=== PATIENT | male | born 1945 | race Caucasian/White ===

== ENCOUNTER 2016-07-11 11:25 | Inpatient (IN) | payer BC, MEDICARE ==
[~2016-07-11] VITALS: Ht 170.2 cm; Wt 72.6 kg
[2016-07-11] MEDS ORDERED: IV NORMAL SALINE 1000ML BAG 1,000 ML IV SCH (12:42)
[2016-07-11] MEDS ORDERED: ONDANSETRON PF 4 MG/2 ML VIAL. IV ONE (12:45)
[2016-07-11] MEDS ORDERED: FENTANYL PF 100 MCG/2 ML VIAL. IV PRN ×2 (12:45→14:30)
[2016-07-11 13:02] LABS: BASO % 1 % (0-3); EOS % 4 % (0-3); HEMATOCRIT 42.3 % (39.0-53.0); HEMOGLOBIN 14.1 g/dL (13.0-17.5); LYMPH # 1.1 x10^3/uL (1.0-4.8); LYMPH % 14 % (24-48); MEAN CORPUSCULAR HEMOGLOBIN 30 pg (25-35); MEAN CORPUSCULAR HGB CONC 33 g/dL (31-37); MEAN CORPUSCULAR VOLUME 90 fL (79-100); MONO % 10 % (0-9); NEUT % 72 % (31-73); PLATELET COUNT 172 x10^3/uL (140-400); RED CELL DISTRIBUTION WIDTH 12.2 % (11.5-14.5)
--- NOTE | 2016-07-11 13:11 | PHYS DOC ---
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 He states he has had approximately 14 ounces of liquids in the past 2-3 days. He can no longer swallow solids. He had endoscopy within the past week. Dr. Ellis , gastroenterology, called this provider to notify you need of admission and oncology consultation with Dr. Buenrostro. Patient denies chest pain, dyspnea, cough , current nausea, diarrhea, constipation, dysuria. He has slight lightheadedness and fatigue. He has not been able to eat solids in weeks. Review of Systems Review of Systems Constitutional: Denies fever or chills [] Eyes: Denies change in visual acuity, redness, or eye pain [] HENT: Denies nasal congestion or sore throat [] Respiratory: Denies cough or shortness of breath [] Cardiovascular: No additional information not addressed in HPI [] GI: Denies abdominal pain, nausea, vomiting, bloody stools or diarrhea [] : Denies dysuria or hematuria [] Musculoskeletal: Denies back pain or joint pain [] Integument: Denies rash or skin lesions [] Neurologic: Denies headache, focal weakness or sensory changes [] Endocrine: Denies polyuria or polydipsia [] Current Medications Current Medications Current Medications Medications (Trade) Dose Ordered Sig/Fabrice Start Time Stop Time Status Last Admin Dose Admin Fentanyl Citrate 50 mcg 50 mcg PRN Q15MIN PRN 07/11/16 12:45 07/12/16 12:44 Ondansetron HCl (Zofran) 4 mg 1X ONCE 07/11/16 12:45 07/11/16 12:46 DC Sodium Chloride (Iv Sodium Chloride 0.9% 1000ml Bag) 1,000 ml @ 150 mls/hr Q6H40M 07/11/16 12:42 07/11/16 19:21 07/11/16 13:13 150 MLS/HR Allergies Allergies Allergies Coded Allergies Type Severity Reaction Last Updated Verified No Known Drug Allergies 07/11/16 No Physical Exam Physical Exam Constitutional: Well developed, well nourished, no acute distress, non-toxic appearance. [] HENT: Normocephalic, atraumatic, bilateral external ears normal, oropharynx moist, nose normal. [] Eyes: PERRLA, EOMI. [] Neck: Normal range of motion, supple. [] Cardiovascular:Heart rate regular rhythm [] Lungs & Thorax: Bilateral breath sounds clear to auscultation [] Abdomen: Bowel sounds normal, soft, no tenderness. [] Skin: Warm, dry, no erythema, no rash. [] Back: Normal range of motion. [] Extremities: ROM intact, no edema. [] Neurologic: Alert and oriented X 3, normal motor function, normal sensory function, no focal deficits noted. [] Psychologic: Affect normal, judgement normal, mood normal. [] Current Patient Data Vital Signs Vital Signs Date Time Temp Pulse Resp B/P Pulse Ox O2 Delivery O2 Flow Rate FiO2 07/11/16 12:29 88 16 139/94 96 Room Air 07/11/16 12:00 98.6 98.6 Lab Values Laboratory Tests Test 07/11/16 12:45 White Blood Count 8.0x10^3/uL (4.0-11.0) Red Blood Count 4.70x10^6/uL (4.30-5.70) Hemoglobin 14.1g/dL (13.0-17.5) Hematocrit 42.3% (39.0-53.0) Mean Corpuscular Volume 90fL (79-100) Mean Corpuscular Hemoglobin 30pg (25-35) Mean Corpuscular Hemoglobin Concent 33g/dL (31-37) Red Cell Distribution Width 12.2% (11.5-14.5) Platelet Count 172x10^3/uL (140-400) Neutrophils (%) (Auto) 72% (31-73) Lymphocytes (%) (Auto) 14% (24-48) L Monocytes (%) (Auto) 10% (0-9) H Eosinophils (%) (Auto) 4% (0-3) H Basophils (%) (Auto) 1% (0-3) Neutrophils # (Auto) 5.8x10^3uL (1.8-7.7) Lymphocytes # (Auto) 1.1x10^3/uL (1.0-4.8) Monocytes # (Auto) 0.8x10^3/uL (0.0-1.1) Eosinophils # (Auto) 0.3x10^3/uL (0.0-0.7) Basophils # (Auto) 0.0x10^3/uL (0.0-0.2) Sodium Level 145mmol/L (136-145) Potassium Level 3.7mmol/L (3.5-5.1) Chloride Level 106mmol/L (98-107) Carbon Dioxide Level 23mmol/L (21-32) Anion Gap 16 (6-14) H Blood Urea Nitrogen 21mg/dL (8-26) Creatinine 1.1mg/dL (0.7-1.3) Estimated GFR (Cockcroft-Gault) 66.2 Glucose Level 98mg/dL (70-99) Calcium Level 9.4mg/dL (8.5-10.1) Magnesium Level 1.7mg/dL (1.8-2.4) L Total Bilirubin 0.9mg/dL (0.2-1.0) Direct Bilirubin 0.2mg/dL (0.0-0.2) Aspartate Amino Transferase (AST) 31U/L (15-37) Alanine Aminotransferase (ALT) 49U/L (16-63) Alkaline Phosphatase 63U/L (46-116) Total Protein 8.3g/dL (6.4-8.2) H Albumin 3.8g/dL (3.4-5.0) Lipase 147U/L (73-393) Laboratory Tests 07/11/16 12:45 Laboratory Tests 07/11/16 12:45 Course & Med Decision Making Course & Med Decision Making Pertinent Labs and Imaging studies reviewed. (See chart for details) Workup is unremarkable. Will admit for further workup and IVF hydration per request of Dr. Ellis, gastroenterology, due to po intolerance. Discussed case with Dr. Martinez, who will admit. Oncology consult placed. Dejah Disclaimer Maggieon Disclaimer This electronic medical record was generated, in whole or in part, using a voice recognition dictation system. Departure Departure Impression: Primary Impression: Esophageal cancer Additional Impression: Dysphagia Disposition: ADMITTED INPATIENT Condition: STABLE Referrals: NO PCP (PCP) Problem Qualifiers Primary Impression: Esophageal cancer Malignant neoplasm of esophagus location: unspecified location Qualified Code : C15.9 - Malignant neoplasm of esophagus, unspecified Additional Impression: Dysphagia Dysphagia type: pharyngoesophageal phase Qualified Code: R13.14 - Dysphagia , pharyngoesophageal phase Ольга LEYVA MD Jul 11, 2016 13:11
[2016-07-11 13:19] LABS: CALCIUM 9.4 mg/dL (8.5-10.1); CREATININE 1.1 mg/dL (0.7-1.3); GFR 66.2; POTASSIUM 3.7 mmol/L (3.5-5.1)
[2016-07-11 13:24] LABS: ALBUMIN 3.8 g/dL (3.4-5.0); DIRECT BILIRUBIN 0.2 mg/dL (0.0-0.2); MAGNESIUM 1.7 mg/dL (1.8-2.4); TOTAL BILIRUBIN 0.9 mg/dL (0.2-1.0); TOTAL PROTEIN 8.3 g/dL (6.4-8.2)
[2016-07-11] MEDS ORDERED: ONDANSETRON PF 4 MG/2 ML VIAL. IV PRN (14:30)
[2016-07-11] MEDS ORDERED: ACETAMINOPHEN 325 MG TABLET. PO PRN (14:30)
[2016-07-11 15:25] VITALS: BP 154/88
--- NOTE | 2016-07-11 15:56 | ACF ---
Admission Forms Criteria HEAD AND NECK DISEASE [facility] Clinical Indications for Admission to Inpatient Care ( Place 'X' for any and all applicable criteria): Hospital admission is needed for appropriate care of the patient because of ANY ONE of the following (1)(2): [ ]I. Severe sinusitis as indicated by ANY ONE of the following (6)(13)(21) [ ]a) Suspected CARD ASSEMBLER infection [ ]b) Bacteremia [ ]c) Hemodynamic instability [ ]d) Outpatient and observation care antibiotic treatment have failed or are not considered appropriate [ ]e) Surgical drainage needed that cannot be performed on an outpatient basis or observation. setting [ ]f) Suspected orbital involvement [ ]II. Acute glaucoma unresponsive to emergency treatment that requires medication or other treatment beyond the scope of observation care (1) [ ]III. Severe eye infection or inflammation (eg, uveitis) which is unresponsive to emergency treatment and requires medication or other treatment beyond the scope of observation care (1)(2)(3)(4) [ ]IV. Severe epistaxis requiring posterior packing (5)(6) [ ]V. Acute bacterial labyrinthitis(6)(7) [ ]. Viral labyrinthitis with symptoms uncontrollable on an outpatient or observation care basis (6)(7) [ ]VII. Severe necrotizing external otitis unresponsive to outpatient and observation care treatment(6) [ ]VIII. Otitis media requiring treatment beyond the scope of outpatient and observation care, as indicated by presence or persistence of ANY ONE of the following(6)(8)(9): [ ]a) Hemodynamic instability [ ]b) Mastoiditis [ ]c) Suspected CARD ASSEMBLER infection [ ]d) Bacteremia [ ]e) Surgical drainage needed that cannot be performed as an outpatient. or in an observation setting. [ ]IX. Epiglottitis or supraglottitis(6)(11)(12)(13)(14) [ ]X. Stridor or laryngospasm (unresponsive to emergency management) (6)(11)( 12)(13)(14) [ ]XI. Acute pharyngitis or tonsillitis and ANY ONE of the following (14)(15)( 16): [ ]a) Hemodynamic instability remaining after emergency or observation level care (as appropriate) [ ]b) Surgical drainage needed that cannot be performed in outpatient or observation setting [ ]c) Mediastinitis [ ]d) Thrombophlebitis of internal jugular vein (Lemierre syndrome) [ ]XII. Sialoadenitis and ANY ONE of the following (17) (18) [ ]a) Hemodynamic instability remaining after emergency or observation level care(as appropriate) [ ]b) Surgical drainage needed that cannot be performed in outpatient or observation setting [X]XIII. Airway blockage or inability to swallow (6)(12)(19)(20) [ ]XIV.Complicated infection indicated by ANY ONE of the following(6)(13)(21)(22 ): [ ]a) Abscess or swelling causing airway difficulty(12) [ ]b) Bacteremia [ ]c) Hemodynamic instability [ ]d) Suspected CARD ASSEMBLER infection [ ]e) Outpatient and observation care antibiotic treatment have failed or are not considered appropriate [ ]f) Surgical drainage needed that cannot be performed on an outpatient basis or observation setting [ ]g) Other management need that cannot be performed in outpatient or observation setting: [ ]XV. Severe trauma requiring inpatient medical treatment of eye, head, pharynx, or airway (1)(23)(24)25)725) [ ]XVI. Ischemic optic neuropathy(11) [ ]XVII.Head or Neck Disease condition and ANY ONE of the following: [ ]a) Symptom or finding for which emergency and observation care have failed or are not considered appropriate (Also use General Criteria: Observation Care as appropriate) [ ]b) Presence of ANY ONE of the following: [ ]i) A General Admission Criteria [ ]ii) A Pediatric General Admission Criteria The original [facility] content created by [facility] has been revised. The portions of the content which have been revised are identified through the use of italic text or in bold, and [facility] has neither reviewed nor approved the modified material. All other unmodified content is copyright [facility]. Please see references footnoted in the original [facility] edition 2016 Admission Criteria Met?: Yes MARIO MUHAMMAD Jul 11, 2016 15:56
[2016-07-11] MEDS ORDERED: ASPI-482 PO (16:23)
[2016-07-11] MEDS ORDERED: MULT-245 PO (16:23)
[2016-07-11] MEDS ORDERED: CRESTOR40 MG PO (16:23)
[2016-07-11] MEDS ORDERED: MAGN400T22 PO (16:23)
[2016-07-11] MEDS ORDERED: CARV12.52 PO (16:23)
[2016-07-11] MEDS ORDERED: RAMI10CA PO (16:23)
[2016-07-11] MEDS ORDERED: FENO130C PO (16:23)
[2016-07-11] MEDS ORDERED: LANS15TA5 PO (16:23)
--- NOTE | 2016-07-11 17:13 | PDOC ---
Provider Note Provider Note Med Onc consult See dictation 1. Esophageal ca - plan CT, bone scan and Rad onc consult. Plan to start radiation DALE with chemo. This should help his dysphagia and Dr Ellis plans to put in a PEG tube after a week or 2 of radiation. He may need TPN for nutrition in the interim, I will await Dr Martinez's input. JUANCHO BONILLA MD Jul 11, 2016 17:13
[2016-07-11] MEDS ORDERED: IOHEXOL 300 MG/ML 75 ML VIAL IV ONE (17:30)
[2016-07-11 19:15] VITALS: BP 153/78
--- NOTE | 2016-07-11 20:08 | CONS ---
DATE OF CONSULTATION: REQUESTING PHYSICIAN: Dr. Apolinar Martinez REASON FOR CONSULTATION: Esophageal cancer. HISTORY OF PRESENT ILLNESS: The patient is a 71-year-old gentleman who has a history of congestive heart failure and a defibrillator pacemaker placement. He was evaluated by his triple valve tester in 05/2016 and he was noted to have hypokalemia and was recommended potassium supplementation. However, he started noticing dizziness, lightheadedness, nausea, vomiting with potassium intake. He subsequently started having dysphagia and he noticed black stools on 06/21/2016. He noticed that he was unable to keep any solid food down and subsequently even thick liquids were difficult and he was regurgitating or throwing it up. He does feel hungry but has lost 16 pounds within 05/2016 to 06/2016 due to dysphagia. He was evaluated by Dr. Johny Ellis and he underwent an upper endoscopy on 07/08/2016. This revealed a large fungating ulcerating mass with bleeding in the lower third of the esophagus. The mass was completely obstructing and was circumferential. A dilator was passed through the scope and dilatation was performed. Biopsies were obtained. I discussed with the pathologist, Dr. Mcadams mentioned that this is malignant and final results will be available in a day or two. In view of poor oral intake and dysphagia, the patient was admitted for further evaluation. PAST MEDICAL HISTORY: Congestive heart failure, COPD, hypertension, pacemaker defibrillator placement, multiple bypass surgeries, valve replacement, cataracts. SOCIAL HISTORY: He has smoked cigarettes from the age of 9 up until the age of 51. He has smoked 3 packs of cigarettes per day. He quit smoking at the age of 51. Family Hx -neg for esophageal ca REVIEW OF SYSTEMS: A 12-point review of system was performed. Pertinent positives are mentioned in the history of present illness. Rest of the system review is negative. PHYSICAL EXAMINATION: GENERAL APPEARANCE: The patient is a 71-year-old gentleman who is in no acute cardiorespiratory distress. VITAL SIGNS: Blood pressure 154/88, temperature 97.3. HEENT: Atraumatic, normocephalic. Eyes: No icterus. NECK: Supple. CHEST: Bilaterally symmetrical. HEART: S1, S2 normal. ABDOMEN: Soft, nontender. CENTRAL NERVOUS SYSTEM: No focal neurological deficits. LYMPHATICS: No lymphadenopathy. SKIN: No rashes. PSYCHOLOGIC: Mood and affect are appropriate. MUSCULOSKELETAL: No joint effusions. LABORATORY DATA: WBC 8, hemoglobin 14.1, platelet count 172 on 07/11/2016. Creatinine 1.1, calcium 9.4 of 1.7, total bilirubin 0.9, direct bilirubin 0.2, AST 31, ALT 49, alkaline phosphatase 63, total protein 8.3, albumin 3.8. IMPRESSION AND PLAN: 1. Esophageal carcinoma involving the distal esophagus diagnosed by EGD and biopsy on 07/08/2016, final results regarding the histology is still pending. I discussed with the pathologist who confirmed that this is malignant. I discussed in detail with the patient. I will obtain staging workup with a CT chest, abdomen and pelvis and a bone scan. If there is no evidence of distant metastatic disease, I will initiate concurrent radiation therapy with chemotherapy using carboplatin and Taxol. I will consult Radiation Oncology. I discussed in detail with the patient. He understands and agrees with the plan. 2. Dysphagia. He has lost 16 pounds in 1-2 months, however, his albumin is still normal at 3.8. I discussed with Dr. Ellis who recommended to start chemoradiation and then after about a week or two he would put in a PEG tube if needed. The patient's albumin is still normal. In the interim if he is unable to keep any liquids down, then he may need TPN support. I will discuss with Dr. Riley and with Dr. Martinez. JUANCHO BONILLA MD DR: KARLA/praful JOB#: [id number] / [id number] APOLINAR Pierre MD [facility]
[2016-07-11] MEDS ORDERED: MORPHINE SULFATE 10 MG/5 ML ORAL SOLUTION. PO PRN ×2 (20:45)
[2016-07-11] MEDS ORDERED: LIDO:MAALOX:BENADRYL 1:1:1 180 ML BOTTLE. PO PRN (22:00)
[2016-07-11] MEDS: ENOXAPARIN 40 MG/0.4 ML DISP.SYRIN. SQ SCH (22:06)
--- NOTE | 2016-07-11 22:08 | HP ---
ADMIT DATE: 07/11/2016 CHIEF COMPLAINT: Newly diagnosed esophageal cancer. HISTORY OF PRESENT ILLNESS: The patient is a 71-year-old gentleman with history of heart disease who had undergone EGD by Dr. Ellis on 07/08/2016 for dysphagia, inability to swallow. A mass had been found and pathology apparently returned malignant report today. He was therefore advised by Dr. Ellis to present to the Emergency Room for admission and further evaluation by other subspecialties. The patient relates that his symptoms actually started in early to mid May and got progressively worse. He is currently unable to swallow solids. He even has trouble with liquids including water, which only seemed to be going down in dropper quantities. He can regurgitate even water if he tries to take a big swallow. He denies any chest pain or abdominal pain, although does have discomfort along his lower rib margins bilaterally. PAST MEDICAL HISTORY: CAD status post CABG, mitral valve repair status post AICD placement in 2014, hypertension, and hyperlipidemia. FAMILY HISTORY: Mother with cancer of unknown origin, heart disease also present in family. SOCIAL HISTORY: Quit smoking 20+ years ago. No ongoing toxic habits. ALLERGIES: No known drug allergies. HOME MEDICATIONS: Reconciled with MAR. Currently unable to swallow pills, has not been taking any for the past week or two. REVIEW OF SYSTEMS: Positive as per HPI. Rest of organ system review is negative. PHYSICAL EXAMINATION: VITAL SIGNS: Today show blood pressure of 153/78, heart rate of 87, respiratory rate at 18. He is afebrile. GENERAL: This is a well-nourished 71-year-old gentleman, alert and oriented, in no acute distress. HEENT: Shows no scleral icterus. NECK: Supple, without any palpable lymphadenopathy. LUNGS: Clear anteriorly. CARDIOVASCULAR: Regular rate and rhythm. ABDOMEN: Has positive bowel sounds. Minimal tenderness in the epigastric area. EXTREMITIES: Show no edema, clubbing or cyanosis. SKIN: Warm, soft and dry. LABORATORY DATA: CBC from today shows a WBC of 8.0, hemoglobin 14.1, platelets of 172. Chemistries with a BUN and creatinine of 21 and 1.1. Normal electrolytes, except for mag at 1.7. LFTs within normal, albumin at 3.8. IMAGING: Pending. ASSESSMENT AND PLAN: The patient is a 71-year-old gentleman with newly diagnosed esophageal carcinoma. He is now admitted for symptom control and completing of his workup. Dr. Buenrostro from Oncology as well as Dr. Church from Radiation Oncology have been consulted. Plan would be concurrent chemoradiation for palliation. His staging workup has not been undertaken yet. CT of the chest, abdomen and pelvis as well as a bone scan have been ordered. Hopefully, his disease is localized. Nutritional status currently is rather poor. He is completely unable to take enough nutrition by mouth to satisfy the requirements of ongoing chemo and radiation. With planned PEG placement in about 2 weeks after starting of concurrent therapy, we will plan on parenteral nutrition for the time being. We will have PICC placed DALE. We will discuss with Dr. Buenrostro if port placement is planned as well. Pain medication will be instituted. We will switch to morphine liquid to see doses necessary for him to be able to tolerate treatment at home. The patient does have significant heart history. Essentially all his medications are related to this. With swallowing difficulties, we will try and switch over to liquid or parenteral dosing for him. Other medications will have to be held for the time being. Prophylaxis will be instituted while in hospital with [facility]. APOLINAR LOPEZ MD DR: UR/nts JOB#: [id number] / [id number] NATHANAEL
[2016-07-11] MEDS ORDERED: CLONIDINE TTS-1 PATCH TD SCH (22:15)
[2016-07-11 22:58] VITALS: BP 137/84
[2016-07-11] MEDS ORDERED: CLONIDINE TTS-1 PATCH TD ONE (23:29)
[2016-07-12 03:15] VITALS: BP 124/82
[2016-07-12 07:00] VITALS: BP 129/79
[2016-07-12] MEDS ORDERED: LANSOPRAZOLE 30 MG TAB.RAP.DR FT SCH (09:00)
--- NOTE | 2016-07-12 09:00 | RAD ---
Exam performed: CT chest abdomen and pelvis with contrast. History: History of esophageal cancer, staging. Date of service: 07/11/16. Comparison: None available Technique: Contiguous helical acquisitions are obtained through the chest, abdomen and pelvis during intravenous administration of 75 cc Omnipaque 300 intravenously. Oral contrast was not given as the patient is unable to swallow. Sagittal and coronal reformatted images are obtained and reviewed. CT chest findings: The structures at the thoracic inlet appear normal. The neck and intrathoracic great vessels appear grossly unremarkable. Mild ectasia of the ascending aorta is noted. No dominant mediastinal or hilar adenopathy is noted. Calcified right hilar lymph node. There is diffuse dilation of the esophagus which appears fluid-filled. A soft tissue density mass is seen in the lower third of the esophagus which completely occludes the lumen in the lowermost portion of the esophagus. There is soft tissue density extending into the gastroesophageal junction Interrogation of lungs demonstrates biapical emphysematous changes. A 1.3 cm noncalcified nodule is seen in the posterior left lower lobe no pleural effusion or pneumothorax seen. Spondylotic changes. Previous median sternotomy. Impression: 1. Soft tissue density mass in the lower third of the esophagus with apparent complete occlusion of the esophageal lumen with proximal esophageal dilation is noted. The exact size of the lesion is difficult to gauge due to presence of fluid in the lower esophagus. The lesion however extends through the gastroesophageal junction. 2. A 1.3 cm soft tissue density mass in the posterior left lower lobe. Pulmonary metastasis suspected End impression * CT abdomen and pelvis findings: 1.3 cm soft tissue density nodule in the left lower lobe. Esophageal dilation with a soft tissue density mass in the lower esophagus and gastroesophageal junction. There are a few low attenuating ill-defined lesions in the right hepatic lobe. The largest lesion measures up to 1.9 cm in the inferior right hepatic lobe. The spleen contains numerous calcifications and is mildly enlarged. Gallbladder pancreas appear normal. Both adrenal glands and bilateral kidneys are normal in size with symmetric excretion of contrast from both kidneys. Tiny bilateral renal cysts with a dominant cyst in the right inferior renal pole measuring 2.5 cm. The aorta demonstrates diffuse soft and calcified plaquing throughout without aneurysm. There are diffusely enlarged lymph nodes in the gastroesophageal and periaortic region and celiac chain. A 3.4 cm lymph node extending up to the shelly. Several enlarged periaortic and aortocaval lymph nodes are also identified which measured to the order of 1.9 cm. Enlarged 1.4 cm lymph node seen in the left renal hilum. Small and large bowel loops are nondilated and unremarkable. Normal ileocecal junction and normal appendix. The urinary bladder is partially decompressed. The prostate gland, seminal vesicles and the rectum appear normal. No free or focal fluid collections or pelvic lymphadenopathy seen. Interrogation of bone windows demonstrates no bony abnormality. Impression: 1. Several low attenuating round lesions involving predominantly the right hepatic lobe concerning for hepatic metastasis. 2. Multiple enlarged lymph nodes at the gastroesophageal junction, periaortic, aortocaval and shelly hepatis consistent with long metastasis. 3. Bilateral renal cysts. 4. Colonic diverticulosis without acute diverticulitis. PQRS Compliance Statement: One or more of the following individualized dose reduction techniques were utilized for this examination: 1. Automated exposure control 2. Adjustment of the mA and/or kV according to patient size 3. Use of iterative reconstruction technique
[2016-07-12 09:29] LABS: BASO % 1 % (0-3); EOS % 4 % (0-3); HEMOGLOBIN 13.6 g/dL (13.0-17.5); LYMPH # 1.1 x10^3/uL (1.0-4.8); LYMPH % 15 % (24-48); MEAN CORPUSCULAR HEMOGLOBIN 30 pg (25-35); MEAN CORPUSCULAR HGB CONC 34 g/dL (31-37); MEAN CORPUSCULAR VOLUME 88 fL (79-100); MONO % 10 % (0-9); NEUT % 71 % (31-73); PLATELET COUNT 172 x10^3/uL (140-400); RED BLOOD COUNT 4.52 x10^6/uL (4.30-5.70); RED CELL DISTRIBUTION WIDTH 12.4 % (11.5-14.5); WHITE BLOOD COUNT 7.4 x10^3/uL (4.0-11.0)
--- NOTE | 2016-07-12 09:31 | PDOC ---
Provider Note Provider Note DATE OF f/u: 07/12/2016 c/c: f/u of Esophageal cancer. HISTORY OF PRESENT ILLNESS: The patient is a 71-year-old gentleman who has a history of congestive heart failure and a defibrillator pacemaker placement. 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 However, he started noticing dizziness, lightheadedness, nausea, vomiting with potassium intake. He subsequently started having dysphagia and he noticed black stools on 06/21/2016. He noticed that he was unable to keep any solid food down and subsequently even thick liquids were difficult and he was regurgitating or throwing it up. He does feel hungry but has lost 16 pounds within 05/2016 to 06/2016 due to dysphagia. He was evaluated by Dr. Johny Ellis and he underwent an upper endoscopy on 07/08/2016. This revealed a large fungating ulcerating mass with bleeding in the lower third of the esophagus. The mass was completely obstructing and was circumferential. A dilator was passed through the scope and dilatation was performed. Biopsies were obtained. I discussed with the pathologist, Dr. Mcadams that this is malignant and final results will be available in a day or two. In view of poor oral intake and dysphagia, the patient was admitted for further evaluation. PAST MEDICAL HISTORY: Congestive heart failure, COPD, hypertension, pacemaker defibrillator placement, multiple bypass surgeries, valve replacement, cataracts. SOCIAL HISTORY: He has smoked cigarettes from the age of 9 up until the age of 51. He has smoked 3 packs of cigarettes per day. He quit smoking at the age of 51. REVIEW OF SYSTEMS: A 12-point review of system was performed. Pertinent positives are mentioned in the history of present illness. Rest of the system review is negative. PHYSICAL EXAMINATION: GENERAL APPEARANCE: The patient is a 71-year-old gentleman who is in no acute cardiorespiratory distress. VITAL SIGNS: reviewed. HEENT: Atraumatic, normocephalic. Eyes: No icterus. NECK: Supple. CHEST: Bilaterally symmetrical. HEART: S1, S2 normal. ABDOMEN: Soft, nontender. CENTRAL NERVOUS SYSTEM: No focal neurological deficits. LYMPHATICS: No lymphadenopathy. SKIN: No rashes. PSYCHOLOGIC: Mood and affect are appropriate. MUSCULOSKELETAL: No joint effusions. LABORATORY DATA: WBC 8, hemoglobin 14.1, platelet count 172 on 07/11/2016. Creatinine 1.1, calcium 9.4 of 1.7, total bilirubin 0.9, direct bilirubin 0.2, AST 31, ALT 49, alkaline phosphatase 63, total protein 8.3, albumin 3.8. IMPRESSION AND PLAN: 1. Stage 4, Esophageal carcinoma involving the distal esophagus diagnosed by EGD and biopsy on 07/08/2016, final results regarding the histology is still pending. CT 07/11/16 reveals liver and lung mets. Bone scan pending. In view of distant metastatic disease, I would recommend palliative radiation therapy followed by palliative chemotherapy (after radiation) with FOLFOX. I will ask pathology to test for Her-2-melissa on the esophageal bx. I will consult Radiation Oncology. I discussed in detail with the patient and his I discussed chemo vs comfort care. He understands the prognosis and agrees with the plan to pursue with radiation and then chemo. 2. Dysphagia. He has lost 16 pounds in 1-2 months, however, his albumin is still normal at 3.8. I discussed with Dr. Ellis who recommended to start chemoradiation and then after about a week or two he would put in a PEG tube if needed. The patient's albumin is still normal. In the interim if he is unable to keep any liquids down, then he may need TPN support. I agree with Dr. Dr. Martinez. 3. Liver mets 4. Lung mets JUANCHO BONILLA MD Jul 12, 2016 09:31
[2016-07-12 09:48] LABS: CALCIUM 9.2 mg/dL (8.5-10.1); GFR 73.9; MAGNESIUM 1.9 mg/dL (1.8-2.4); PHOSPHORUS 2.8 mg/dL (2.6-4.7); POTASSIUM 3.6 mmol/L (3.5-5.1)
--- NOTE | 2016-07-12 11:14 | PDOC ---
PROGRESS NOTES Chief Complaint Chief Complaint 1. 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 h/o CAD status post CABG 3. , mitral valve repair 4. AICD/PPM placement in 2015, 5.hypertension 6. hyperlipidemia. 7. HYPOmagnesemia 8. dysphagia with esophageal Ca plan: 1. fu with onco, onco rad 2. will start with chemo and RT soon 3. TPN for now 4. on clonidine patch for htn, hydralazine prn 5. bone scan pending 6. dvt ppx PEG in [address] Rhonda caldera can improve po intake and take po pills History of Present Illness History of Present Illness can only take half spoon of liquid no BM FOR 2 DS Lung mets, liver mets Vitals Vitals Vital Signs Date Time Temp Pulse Resp B/P Pulse Ox O2 Delivery O2 Flow Rate FiO2 07/12/16 07:59 Room Air 07/12/16 07:00 97.7 91 16 129/79 94 97.7 Physical Exam General: Alert, Oriented X3, Cooperative Heart: Regular rate, Normal S1, Normal S2 Lungs: Clear Abdomen: Normal bowel sounds, Soft, Other (mild upper abd tenderness) Extremities: No clubbing, No cyanosis Skin: No rashes Labs LABS Laboratory Tests Test 07/11/16 12:45 07/12/16 09:10 White Blood Count 8.0x10^3/uL (4.0-11.0) 7.4x10^3/uL (4.0-11.0) Red Blood Count 4.70x10^6/uL (4.30-5.70) 4.52x10^6/uL (4.30-5.70) Hemoglobin 14.1g/dL (13.0-17.5) 13.6g/dL (13.0-17.5) Hematocrit 42.3% (39.0-53.0) 40.0% (39.0-53.0) Mean Corpuscular Volume 90fL (79-100) 88fL (79-100) Mean Corpuscular Hemoglobin 30pg (25-35) 30pg (25-35) Mean Corpuscular Hemoglobin Concent 33g/dL (31-37) 34g/dL (31-37) Red Cell Distribution Width 12.2% (11.5-14.5) 12.4% (11.5-14.5) Platelet Count 172x10^3/uL (140-400) 172x10^3/uL (140-400) Neutrophils (%) (Auto) 72% (31-73) 71% (31-73) Lymphocytes (%) (Auto) 14% (24-48) 15% (24-48) Monocytes (%) (Auto) 10% (0-9) 10% (0-9) Eosinophils (%) (Auto) 4% (0-3) 4% (0-3) Basophils (%) (Auto) 1% (0-3) 1% (0-3) Neutrophils # (Auto) 5.8x10^3uL (1.8-7.7) 5.2x10^3uL (1.8-7.7) Lymphocytes # (Auto) 1.1x10^3/uL (1.0-4.8) 1.1x10^3/uL (1.0-4.8) Monocytes # (Auto) 0.8x10^3/uL (0.0-1.1) 0.7x10^3/uL (0.0-1.1) Eosinophils # (Auto) 0.3x10^3/uL (0.0-0.7) 0.3x10^3/uL (0.0-0.7) Basophils # (Auto) 0.0x10^3/uL (0.0-0.2) 0.0x10^3/uL (0.0-0.2) Sodium Level 145mmol/L (136-145) 146mmol/L (136-145) Potassium Level 3.7mmol/L (3.5-5.1) 3.6mmol/L (3.5-5.1) Chloride Level 106mmol/L (98-107) 109mmol/L (98-107) Carbon Dioxide Level 23mmol/L (21-32) 23mmol/L (21-32) Anion Gap 16 (6-14) 14 (6-14) Blood Urea Nitrogen 21mg/dL (8-26) 19mg/dL (8-26) Creatinine 1.1mg/dL (0.7-1.3) 1.0mg/dL (0.7-1.3) Estimated GFR (Cockcroft-Gault) 66.2 73.9 Glucose Level 98mg/dL (70-99) 107mg/dL (70-99) Calcium Level 9.4mg/dL (8.5-10.1) 9.2mg/dL (8.5-10.1) Magnesium Level 1.7mg/dL (1.8-2.4) 1.9mg/dL (1.8-2.4) Total Bilirubin 0.9mg/dL (0.2-1.0) Direct Bilirubin 0.2mg/dL (0.0-0.2) Aspartate Amino Transf (AST/SGOT) 31U/L (15-37) Alanine Aminotransferase (ALT/SGPT) 49U/L (16-63) Alkaline Phosphatase 63U/L (46-116) Total Protein 8.3g/dL (6.4-8.2) Albumin 3.8g/dL (3.4-5.0) Lipase 147U/L (73-393) Phosphorus Level 2.8mg/dL (2.6-4.7) Review of Systems Review of Systems no fever, chills, sob or chest pain Assessment and Plan Assessmemt and Plan Problems Medical Problems: (1) Dysphagia Status: Acute (2) Esophageal cancer Status: Acute Problems: Comment Review of Relevant I have reviewed the following items dilma (where applicable) has been applied. Labs Laboratory Tests Test 07/11/16 12:45 07/12/16 09:10 White Blood Count 8.0x10^3/uL (4.0-11.0) 7.4x10^3/uL (4.0-11.0) Red Blood Count 4.70x10^6/uL (4.30-5.70) 4.52x10^6/uL (4.30-5.70) Hemoglobin 14.1g/dL (13.0-17.5) 13.6g/dL (13.0-17.5) Hematocrit 42.3% (39.0-53.0) 40.0% (39.0-53.0) Mean Corpuscular Volume 90fL (79-100) 88fL (79-100) Mean Corpuscular Hemoglobin 30pg (25-35) 30pg (25-35) Mean Corpuscular Hemoglobin Concent 33g/dL (31-37) 34g/dL (31-37) Red Cell Distribution Width 12.2% (11.5-14.5) 12.4% (11.5-14.5) Platelet Count 172x10^3/uL (140-400) 172x10^3/uL (140-400) Neutrophils (%) (Auto) 72% (31-73) 71% (31-73) Lymphocytes (%) (Auto) 14% (24-48) 15% (24-48) Monocytes (%) (Auto) 10% (0-9) 10% (0-9) Eosinophils (%) (Auto) 4% (0-3) 4% (0-3) Basophils (%) (Auto) 1% (0-3) 1% (0-3) Neutrophils # (Auto) 5.8x10^3uL (1.8-7.7) 5.2x10^3uL (1.8-7.7) Lymphocytes # (Auto) 1.1x10^3/uL (1.0-4.8) 1.1x10^3/uL (1.0-4.8) Monocytes # (Auto) 0.8x10^3/uL (0.0-1.1) 0.7x10^3/uL (0.0-1.1) Eosinophils # (Auto) 0.3x10^3/uL (0.0-0.7) 0.3x10^3/uL (0.0-0.7) Basophils # (Auto) 0.0x10^3/uL (0.0-0.2) 0.0x10^3/uL (0.0-0.2) Sodium Level 145mmol/L (136-145) 146mmol/L (136-145) Potassium Level 3.7mmol/L (3.5-5.1) 3.6mmol/L (3.5-5.1) Chloride Level 106mmol/L (98-107) 109mmol/L (98-107) Carbon Dioxide Level 23mmol/L (21-32) 23mmol/L (21-32) Anion Gap 16 (6-14) 14 (6-14) Blood Urea Nitrogen 21mg/dL (8-26) 19mg/dL (8-26) Creatinine 1.1mg/dL (0.7-1.3) 1.0mg/dL (0.7-1.3) Estimated GFR (Cockcroft-Gault) 66.2 73.9 Glucose Level 98mg/dL (70-99) 107mg/dL (70-99) Calcium Level 9.4mg/dL (8.5-10.1) 9.2mg/dL (8.5-10.1) Magnesium Level 1.7mg/dL (1.8-2.4) 1.9mg/dL (1.8-2.4) Total Bilirubin 0.9mg/dL (0.2-1.0) Direct Bilirubin 0.2mg/dL (0.0-0.2) Aspartate Amino Transf (AST/SGOT) 31U/L (15-37) Alanine Aminotransferase (ALT/SGPT) 49U/L (16-63) Alkaline Phosphatase 63U/L (46-116) Total Protein 8.3g/dL (6.4-8.2) Albumin 3.8g/dL (3.4-5.0) Lipase 147U/L (73-393) Phosphorus Level 2.8mg/dL (2.6-4.7) Laboratory Tests Test 07/11/16 12:45 07/12/16 09:10 White Blood Count 8.0x10^3/uL (4.0-11.0) 7.4x10^3/uL (4.0-11.0) Red Blood Count 4.70x10^6/uL (4.30-5.70) 4.52x10^6/uL (4.30-5.70) Hemoglobin 14.1g/dL (13.0-17.5) 13.6g/dL (13.0-17.5) Hematocrit 42.3% (39.0-53.0) 40.0% (39.0-53.0) Mean Corpuscular Volume 90fL (79-100) 88fL (79-100) Mean Corpuscular Hemoglobin 30pg (25-35) 30pg (25-35) Mean Corpuscular Hemoglobin Concent 33g/dL (31-37) 34g/dL (31-37) Red Cell Distribution Width 12.2% (11.5-14.5) 12.4% (11.5-14.5) Platelet Count 172x10^3/uL (140-400) 172x10^3/uL (140-400) Neutrophils (%) (Auto) 72% (31-73) 71% (31-73) Lymphocytes (%) (Auto) 14% (24-48) 15% (24-48) Monocytes (%) (Auto) 10% (0-9) 10% (0-9) Eosinophils (%) (Auto) 4% (0-3) 4% (0-3) Basophils (%) (Auto) 1% (0-3) 1% (0-3) Neutrophils # (Auto) 5.8x10^3uL (1.8-7.7) 5.2x10^3uL (1.8-7.7) Lymphocytes # (Auto) 1.1x10^3/uL (1.0-4.8) 1.1x10^3/uL (1.0-4.8) Monocytes # (Auto) 0.8x10^3/uL (0.0-1.1) 0.7x10^3/uL (0.0-1.1) Eosinophils # (Auto) 0.3x10^3/uL (0.0-0.7) 0.3x10^3/uL (0.0-0.7) Basophils # (Auto) 0.0x10^3/uL (0.0-0.2) 0.0x10^3/uL (0.0-0.2) Sodium Level 145mmol/L (136-145) 146mmol/L (136-145) Potassium Level 3.7mmol/L (3.5-5.1) 3.6mmol/L (3.5-5.1) Chloride Level 106mmol/L (98-107) 109mmol/L (98-107) Carbon Dioxide Level 23mmol/L (21-32) 23mmol/L (21-32) Anion Gap 16 (6-14) 14 (6-14) Blood Urea Nitrogen 21mg/dL (8-26) 19mg/dL (8-26) Creatinine 1.1mg/dL (0.7-1.3) 1.0mg/dL (0.7-1.3) Estimated GFR (Cockcroft-Gault) 66.2 73.9 Glucose Level 98mg/dL (70-99) 107mg/dL (70-99) Calcium Level 9.4mg/dL (8.5-10.1) 9.2mg/dL (8.5-10.1) Magnesium Level 1.7mg/dL (1.8-2.4) 1.9mg/dL (1.8-2.4) Total Bilirubin 0.9mg/dL (0.2-1.0) Direct Bilirubin 0.2mg/dL (0.0-0.2) Aspartate Amino Transf (AST/SGOT) 31U/L (15-37) Alanine Aminotransferase (ALT/SGPT) 49U/L (16-63) Alkaline Phosphatase 63U/L (46-116) Total Protein 8.3g/dL (6.4-8.2) Albumin 3.8g/dL (3.4-5.0) Lipase 147U/L (73-393) Phosphorus Level 2.8mg/dL (2.6-4.7) Medications Current Medications Fentanyl Citrate 50 mcg 50 mcg PRN Q15MIN PRN IV PAIN GREATER THAN 3/10; Start 07/11/16 at 12:45; Stop 07/11/16 at 20:37; Status DC Sodium Chloride (Iv Sodium Chloride 0.9% 1000ml Bag) 1,000 ml @ 150 mls/hr Q6H40M IV Last administered on 07/11/16 13:13; Start 07/11/16 at 12:42; Stop 07/11/16 at 19:21; Status DC Ondansetron HCl (Zofran) 4 mg 1X ONCE IV ; Start 07/11/16 at 12:45; Stop at 12:46; Status DC Ondansetron HCl (Zofran) 4 mg PRN Q8HRS PRN IV NAUSEA/VOMITING Last administered on 07/11/16 19:13; Start 07/11/16 at 14:30; Stop 07/12/16 at 14:29 Fentanyl Citrate (Fentanyl 2ml Vial) 50 mcg PRN Q2HR PRN IV PAIN; Start at 14:30; Stop 07/12/16 at 14:29 Acetaminophen (Tylenol) 650 mg PRN Q4HRS PRN PO FEVER; Start 07/11/16 at 14:30 ; Stop 07/12/16 at 14:29 Iohexol (Omnipaque 300 Mg/ml) 75 ml 1X ONCE IV Last administered on 07/11/16 17:39; Start 07/11/16 at 17:30; Stop 07/11/16 at 17:31; Status DC Morphine Sulfate (Morphine Oral Solution) 5 mg PRN Q3HRS PRN PO PAIN; Start at 20:45 Morphine Sulfate (Morphine Oral Solution) 10 mg PRN Q3HRS PRN PO PAIN; Start at 20:45 Enoxaparin Sodium (Lovenox 40mg Syringe) 40 mg Q24H SQ Last administered on 22:06; Start 07/11/16 at 22:00 Lansoprazole (Prevacid) 30 mg BID FT Last administered on 07/12/16 08:53; Start 07/12/16 at 09:00; Stop 07/12/16 at 09:02; Status DC Clonidine HCl (Catapres Tts-1) 1 patch WEEKLY TD ; Start 07/18/16 at 09:00 Multi-Ingredient Mouthwash/Gargle (Magic Mouthwash) 10 ml PRN Q4HRS PRN PO pain w/ swallowing; Start 07/11/16 at 22:00 Clonidine HCl (Catapres Tts-1) 1 patch ONCE TD ; Start 07/11/16 at 22:15; Stop 07/11/16 at 23:29; Status DC Clonidine HCl (Catapres Tts-1) 1 patch ONCE ONCE TD Last administered on 23:15; Start 07/11/16 at 23:29; Stop 07/11/16 at 23:30; Status DC Pantoprazole Sodium (Protonix Vial) 40 mg DAILYAC IVP ; Start 07/12/16 at 10:00 Active Scripts Active Reported Crestor (Rosuvastatin Calcium) 40 Mg Tablet 1 Tab PO DAILY Fenofibrate (Fenofibrate,Micronized) 130 Mg Capsule 160 Mg PO DAILY Ramipril 10 Mg Capsule 1 Cap PO DAILY Prevacid (Lansoprazole) 15 Mg Tab.rap.dr 1 Tab PO DAILY Multi Vitamin Daily (Multivitamin) 1 Each Tablet 1 Each PO Mag-Oxide (Magnesium Oxide) 400 Mg Tablet 1 Tab PO BID Carvedilol 12.5 Mg Tablet 1 Tab PO BID Aspir 81 (Aspirin) 81 Mg Tablet.dr 1 Tab PO DAILY Vitals/I & O Vital Sign - Last 24 Hours 07/11/16 07/11/16 07/11/16 07/11/16 12:00 12:29 13:29 13:59 Temp 98.6 98.6 Pulse 88 88 83 90 Resp 16 16 B/P 188/98 139/94 135/98 141/98 Pulse Ox 97 96 95 96 O2 Delivery Room Air Room Air Room Air Room Air 07/11/16 07/11/16 07/11/16 07/11/16 15:25 16:35 19:05 19:15 Temp 97.3 99.0 97.3 99.0 Pulse 83 87 Resp 18 B/P 154/88 153/78 Pulse Ox 95 93 O2 Delivery Room Air Room Air Room Air Room Air 07/11/16 07/12/16 07/12/16 07/12/16 22:58 03:15 07:00 07:59 Temp 97.5 97.7 97.7 97.5 97.7 97.7 Pulse 93 68 91 Resp 18 16 B/P 137/84 124/82 129/79 Pulse Ox 96 94 94 O2 Delivery Room Air Room Air Room Air Room Air Intake and Output 07/11/16 07/11/16 07/12/16 15:00 23:00 07:00 Intake Total 75 ml 75 ml Output Total 500 ml Balance 75 ml -425 ml ALICIA JACQUES MD Jul 12, 2016 11:14
[2016-07-12] MEDS ORDERED: MORPHINE SULFATE 2 MG/ML DISP.SYRIN. IV PRN (11:15)
[2016-07-12] MEDS ORDERED: hydrALAZINE 20 MG/ML VIAL. IVP PRN (11:15)
[2016-07-12] MEDS ORDERED: ONDANSETRON PF 4 MG/2 ML VIAL. IV PRN (11:15)
[2016-07-12] MEDS ORDERED: MORPHINE SULFATE 4 MG/ML DISP.SYRIN. IV PRN (11:15)
[2016-07-12 11:23] LABS: INR 1.3 (0.8-1.1)
[2016-07-12] MEDS: PANTOPRAZOLE IV PUSH 40 MG VIAL. IVP SCH (13:01)
--- NOTE | 2016-07-12 14:30 | RAD ---
Exam performed: Nuclear medicine whole-body bone scan. Indication: Esophageal cancer staging Date of Service: 07/12/16 Comparison:CT chest abdomen and pelvis performed earlier today Discussion: Following the intravenous administration of 25.0 mCi of MDP labeled with Technetium, delayed whole-body gamma camera images of the axial and appendicular skeleton were obtained. There is symmetric excretion of radiotracer via both kidneys with accumulation in the urinary bladder. There is normal distribution of the radionuclide without abnormal areas of increased or decreased accumulation. Degenerative pattern of symmetric activity seen in shoulders bilaterally Impression: No convincing evidence of bony metastasis noted.
[2016-07-12 15:00] VITALS: BP 128/75
[2016-07-12] MEDS ORDERED: HEPARIN PF 500 UNIT/5 ML DISP.SYRIN. IV ONE (15:23)
[2016-07-12] MEDS ORDERED: HEPARIN for ARTERIAL LINE 0 ML ONE (15:24)
[2016-07-12] MEDS ORDERED: VANCOMYCIN 1GM IVPB FOR OMNI 0 ML ONE (15:24)
[2016-07-12] MEDS ORDERED: LIDOCAINE 1%/EPI 1:100,000 20 ML VIAL. ONE (15:24)
--- NOTE | 2016-07-12 15:27 | PDOC ---
Provider Note Provider Note [address] IV(T2 N2 M1) adenocarcinoma of distal esophagus with extensive long, liver and lung mets. At endoscopy scope could not be passed due to obstruction from primary lesion. Now unable even to swallow liquids. CT chest: dilated upper esophagus, obstructing mass lower esophagus, para esophageal, paragastric and retroperitoneal adenopathy, liver lesions solitary left lower lobe mass. Bone scan clear. Plan: Portacath placement for TPN , palliative radiation to primary to open lumen then consider PEG tube depending response along with follow-up system, palliative chemotherapy. Discussed in detail with patient and with Dr Buenrostro. Plan to simulate for treatment tomorrow with treatment to follow on 07/14/2016. GLADYS BARDALES MD Jul 12, 2016 15:26
[2016-07-12 19:49] VITALS: BP 131/80
[2016-07-12] MEDS: ENOXAPARIN 40 MG/0.4 ML DISP.SYRIN. SQ SCH (21:10)
[2016-07-12 23:26] VITALS: BP 134/91
--- NOTE | 2016-07-12 23:51 | CONS ---
DATE OF CONSULTATION: 07/12/2016 REFERRING PHYSICIAN: Dr. Peter Buenrostro. DIAGNOSIS: Stage IV (T2N2M1) adenocarcinoma of the distal esophagus with liver, extensive long and lung metastases at diagnosis. He underwent upper endoscopy and biopsy on 07/08/2016. We were asked to see him regarding the role of palliative radiation therapy in his care. HISTORY OF PRESENT ILLNESS: The patient is a 71-year-old gentleman who in 05/2016 was noted to have low potassium and magnesium levels by his [employer] at [facility]. He took minimal supplement pills and initially felt better. He then developed a sore throat and progressive difficulty with swallowing. Pills initially followed by solid foods and then liquid foods in 06/2016. In early 06/2016 he also passed black tarry stools and did note a total of a 16-pound weight loss. As a result of inability to swallow even liquids, he was admitted here for further evaluation. At the time of his upper endoscopy on 07/08/2016 there was a fungating ulcerating mass with bleeding in the lower third of the esophagus completely obstructing and was circumferential. He was dilated. Biopsies were obtained which by verbal report from Dr. Ayala were consistent with adenocarcinoma. Since endoscopy, he continues to have inability to swallow liquids. PAST MEDICAL HISTORY: Remarkable for congestive heart failure, arrhythmia with pacer and defibrillator placement in the past, coronary artery disease with bypass graft surgery and bowel repair, COPD, hypertension. ALLERGIES: No known allergies. MEDICATIONS: See hospital list. FAMILY HISTORY: Mother from advanced malignancy of some kind in her 60s. Other members of the family have had cancer as well that he cannot specify type of cancer. SOCIAL HISTORY: for the second time for 11 years, previously , has 2 sons living in [place], one stepson living in [place], [place]. 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 He smoked from age 9 to age 51 up to 3 packs a day. He drank rarely, drinking an occasional beer. In the past, he enjoyed target shooting, motor cycles and ATV driving. PHYSICAL EXAMINATION: GENERAL: Revealed a pleasant, articulate gentleman, teary eyed with his current diagnosis, in no acute distress. HEENT: Revealed no scleral icterus. He had no teeth with dentures in place. LYMPH NODES: He had no palpable cervical or supraclavicular adenopathy. LUNGS: Clear. HEART: Regular, pacemaker was placed in the left infraclavicular space. ABDOMEN: Revealed no hepatomegaly, mass or tenderness. EXTREMITIES: Reveal no clubbing, cyanosis or edema. NEUROLOGIC: Revealed no focal deficits. He was appropriate during examination. LABORATORY STUDIES: On 07/11/2016, hemoglobin 14.1, white count 8000, platelet count 172,000. Chemistry panel was within normal limits. Sodium 145, potassium 3.7 and creatinine 1.1. Liver function tests normal. Total protein slightly elevated at 8.3, albumin normal at 3.8. CT scan of the chest from 07/11/2016 was reviewed and revealed dilated proximal two thirds of the esophagus extending to a mass in the inferior third of the esophagus with completed obliteration of a lumen mass extending into the GE junction. There was paraesophageal, para-gastric and retroperitoneal adenopathy. There were 3 or 4 low density masses in the liver. There was a single mass in the base of the left lung, all compatible with disease involvement. Bone scan done earlier today was unremarkable for metastatic disease. ASSESSMENT AND PLAN: In summary, my impression is that of stage IV (T2N2M1) adenocarcinoma of the distal esophagus. At this time, he is undergoing Port-A-Cath placement tomorrow. Following this palliative radiation therapy is rational along with TPN support. Depending on the response to palliative radiation therapy, there may be a role for PEG tube placement in the future. Following radiation he will also be considered for palliative systemic chemotherapy. I discussed this with Dr. Buenrostro and the patient. Anticipate a 10 to 15 day course of treatment following simulation, which will occur after his Port-A-Cath placement. Thank you for allowing us to participate in his evaluation. GLADYS BARDALES MD DR: MERCEDEZ/praful JOB#: [id number] / [id number] AIDA Monge MD [facility]
[2016-07-13] VITALS (16 sets, daily range): BP systolic 100–131; BP diastolic 67–93
[2016-07-13 05:30] LABS: CALCIUM 9.4 mg/dL (8.5-10.1); CREATININE 0.9 mg/dL (0.7-1.3); GFR 83.4; POTASSIUM 3.5 mmol/L (3.5-5.1)
[2016-07-13] MEDS: PANTOPRAZOLE IV PUSH 40 MG VIAL. IVP SCH (06:24)
[2016-07-13] MEDS ORDERED: LIDOCAINE 1%/EPI 1:100,000 20 ML VIAL. ONE (08:24)
[2016-07-13] MEDS ORDERED: HEPARIN PF 500 UNIT/5 ML DISP.SYRIN. IV ONE ×2 (08:24→09:45)
[2016-07-13] MEDS ORDERED: VANCOMYCIN 1GM IVPB FOR OMNI 250 ML ONE (08:24)
[2016-07-13] MEDS ORDERED: CEFAZOLIN 1GM IVPB FOR OMNI 50 ML IV ONE ×2 (09:20→09:45)
[2016-07-13] MEDS ORDERED: FENTANYL PF 250 MCG/5 ML VIAL. ONE (09:20)
[2016-07-13] MEDS ORDERED: MIDAZOLAM HCL/PF 5 MG/5 ML VIAL ONE (09:20)
[2016-07-13] MEDS ORDERED: LIDOCAINE 1%/EPI 1:100,000 20 ML VIAL. IJ ONE (09:45)
[2016-07-13] MEDS ORDERED: FENTANYL PF 250 MCG/5 ML VIAL. IV ONE (09:45)
[2016-07-13] MEDS ORDERED: VANCOMYCIN 1GM IVPB FOR OMNI 250 ML IRR ONE (09:45)
[2016-07-13] MEDS ORDERED: MIDAZOLAM HCL/PF 5 MG/5 ML VIAL IV ONE (09:45)
--- NOTE | 2016-07-13 10:09 | PDOC ---
MODERATE SEDATION ASSESSMENT RISKS/ALTERNATIVES Risks/Alternatives Risks and alternatives of this type of sedation and procedure discussed with: RISK/ALTERNATIVES: Patient H & P ON CHART H & P H & P on chart and reviewed for co-morbid conditions and appropriate labs. H&P ON CHART: Yes STATUS PREG STATUS ASSESSED: N/A MEDS/ALLERGIES REVIEWED Meds/Allergies Reviewed Medications and Allergies including time and route of recently administered narcotics and sedatives. MEDS/ALLERGIES REVIEWED: Yes ASA RATING ASA RATING: III AIRWAY ASSESSMENT Airway Assessment Airway patency, oral function limitations, presence of caps, crowns, dentures, partials, and ability to extend neck assessed. AIRWAY ASSESSMENT: Yes MALLAMPATI SCORE MALLAMPATI SCORE: II PRE-SEDATION ASSESSMENT PRE-SEDATION ASSESSMENT: Yes PARMJIT HOLLIS MD Jul 13, 2016 10:09
--- NOTE | 2016-07-13 10:12 | PDOC ---
Exam Center Sales And Service Associate Center Sales And Service Associate Corrine Envelope Stuffer Envelope Stuffer Rhonda Villarreal Pre-Procedure Diagnosis Pre-Procedure Diagnosis 71 YO male with esophageal cancer---Power Port requested for chemotx +/- TPN Post-Procedure Diagnosis Post-Procedure Diagnosis Same Procedure Performed Procedure Performed Sono/fluoro guided rt IJ tunneled Power Port insertion Type of Anesthesia Type of Anesthesia Local + Mod sedation Estimated Blood Loss EBL: Minimal Drain/Tubes Drains/Tubes Right IJ 8F tunneled Power Port Condition of Patient Condition of Patient Stable. No apparent complication. Disposition Disposition From IR return to 438. OK to use Power Port. F/u with [facility], Dr Buenrostro, and XRT. Full report to follow. PARMJIT HOLLIS MD Jul 13, 2016 10:12
[2016-07-13] MEDS: POTASSIUM CL 20MEQ IN D5W 1,000 ML IV SCH ×2 (10:57→21:39)
--- NOTE | 2016-07-13 11:41 | PDOC ---
PROGRESS NOTES Chief Complaint Chief Complaint 1. 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 h/o CAD status post CABG 3. , mitral valve repair 4. AICD/PPM placement in 2015, 5.hypertension 6. hyperlipidemia. 7. HYPOmagnesemia 8. dysphagia with esophageal Ca 9. hypernatremia plan: 1. fu with onco, onco rad 2. will start with chemo and RT soon 3. TPN today after rt IJ port done 4. on clonidine patch for htn, hydralazine prn 5. bone scan neg for mets 6. dvt ppx PEG in [address] Rhonda caldera can improve po intake and take po pills dc tmr when RT set up as outpt. no chemo for now as per ONco sw involve add d5 now History of Present Illness History of Present Illness can only take half spoon of liquid no BM FOR 2 DS Lung mets, liver mets high Na, DIDNOT get TPN yesterday since no central line was done c/o no nutrition, no RT was done yesterday Vitals Vitals Vital Signs Date Time Temp Pulse Resp B/P Pulse Ox O2 Delivery O2 Flow Rate FiO2 07/13/16 10:18 89 17 95 Room Air 07/13/16 07:00 97.7 113/70 97.7 Physical Exam General: Alert, Oriented X3, Cooperative Heart: Regular rate, Normal S1, Normal S2 Lungs: Clear Abdomen: Normal bowel sounds, Soft, Other (mild upper abd tenderness) Extremities: No clubbing, No cyanosis Skin: No rashes Labs LABS Laboratory Tests Test 07/13/16 04:45 Sodium Level 148mmol/L (136-145) Potassium Level 3.5mmol/L (3.5-5.1) Chloride Level 110mmol/L (98-107) Carbon Dioxide Level 23mmol/L (21-32) Anion Gap 15 (6-14) Blood Urea Nitrogen 20mg/dL (8-26) Creatinine 0.9mg/dL (0.7-1.3) Estimated GFR (Cockcroft-Gault) 83.4 Glucose Level 85mg/dL (70-99) Calcium Level 9.4mg/dL (8.5-10.1) Review of Systems Review of Systems no fever, chills, sob or chest pain Assessment and Plan Assessmemt and Plan Problems Medical Problems: (1) Dysphagia Status: Acute (2) Esophageal cancer Status: Acute Problems: Comment Review of Relevant I have reviewed the following items dilma (where applicable) has been applied. Labs Laboratory Tests Test 07/11/16 12:45 07/12/16 09:10 07/12/16 10:55 07/13/16 04:45 White Blood Count 8.0x10^3/uL (4.0-11.0) 7.4x10^3/uL (4.0-11.0) Red Blood Count 4.70x10^6/uL (4.30-5.70) 4.52x10^6/uL (4.30-5.70) Hemoglobin 14.1g/dL (13.0-17.5) 13.6g/dL (13.0-17.5) Hematocrit 42.3% (39.0-53.0) 40.0% (39.0-53.0) Mean Corpuscular Volume 90fL (79-100) 88fL (79-100) Mean Corpuscular Hemoglobin 30pg (25-35) 30pg (25-35) Mean Corpuscular Hemoglobin Concent 33g/dL (31-37) 34g/dL (31-37) Red Cell Distribution Width 12.2% (11.5-14.5) 12.4% (11.5-14.5) Platelet Count 172x10^3/uL (140-400) 172x10^3/uL (140-400) Neutrophils (%) (Auto) 72% (31-73) 71% (31-73) Lymphocytes (%) (Auto) 14% (24-48) 15% (24-48) Monocytes (%) (Auto) 10% (0-9) 10% (0-9) Eosinophils (%) (Auto) 4% (0-3) 4% (0-3) Basophils (%) (Auto) 1% (0-3) 1% (0-3) Neutrophils # (Auto) 5.8x10^3uL (1.8-7.7) 5.2x10^3uL (1.8-7.7) Lymphocytes # (Auto) 1.1x10^3/uL (1.0-4.8) 1.1x10^3/uL (1.0-4.8) Monocytes # (Auto) 0.8x10^3/uL (0.0-1.1) 0.7x10^3/uL (0.0-1.1) Eosinophils # (Auto) 0.3x10^3/uL (0.0-0.7) 0.3x10^3/uL (0.0-0.7) Basophils # (Auto) 0.0x10^3/uL (0.0-0.2) 0.0x10^3/uL (0.0-0.2) Sodium Level 145mmol/L (136-145) 146mmol/L (136-145) 148mmol/L (136-145) Potassium Level 3.7mmol/L (3.5-5.1) 3.6mmol/L (3.5-5.1) 3.5mmol/L (3.5-5.1) Chloride Level 106mmol/L (98-107) 109mmol/L (98-107) 110mmol/L (98-107) Carbon Dioxide Level 23mmol/L (21-32) 23mmol/L (21-32) 23mmol/L (21-32) Anion Gap 16 (6-14) 14 (6-14) 15 (6-14) Blood Urea Nitrogen 21mg/dL (8-26) 19mg/dL (8-26) 20mg/dL (8-26) Creatinine 1.1mg/dL (0.7-1.3) 1.0mg/dL (0.7-1.3) 0.9mg/dL (0.7-1.3) Estimated GFR (Cockcroft-Gault) 66.2 73.9 83.4 Glucose Level 98mg/dL (70-99) 107mg/dL (70-99) 85mg/dL (70-99) Calcium Level 9.4mg/dL (8.5-10.1) 9.2mg/dL (8.5-10.1) 9.4mg/dL (8.5-10.1) Magnesium Level 1.7mg/dL (1.8-2.4) 1.9mg/dL (1.8-2.4) Total Bilirubin 0.9mg/dL (0.2-1.0) Direct Bilirubin 0.2mg/dL (0.0-0.2) Aspartate Amino Transf (AST/SGOT) 31U/L (15-37) Alanine Aminotransferase (ALT/SGPT) 49U/L (16-63) Alkaline Phosphatase 63U/L (46-116) Total Protein 8.3g/dL (6.4-8.2) Albumin 3.8g/dL (3.4-5.0) Lipase 147U/L (73-393) Phosphorus Level 2.8mg/dL (2.6-4.7) Prothrombin Time 15.0SEC (11.7-14.0) Prothromb Time International Ratio 1.3 (0.8-1.1) Laboratory Tests Test 07/13/16 04:45 Sodium Level 148mmol/L (136-145) Potassium Level 3.5mmol/L (3.5-5.1) Chloride Level 110mmol/L (98-107) Carbon Dioxide Level 23mmol/L (21-32) Anion Gap 15 (6-14) Blood Urea Nitrogen 20mg/dL (8-26) Creatinine 0.9mg/dL (0.7-1.3) Estimated GFR (Cockcroft-Gault) 83.4 Glucose Level 85mg/dL (70-99) Calcium Level 9.4mg/dL (8.5-10.1) Medications Current Medications Fentanyl Citrate 50 mcg 50 mcg PRN Q15MIN PRN IV PAIN GREATER THAN 3/10; Start 07/11/16 at 12:45; Stop 07/11/16 at 20:37; Status DC Sodium Chloride (Iv Sodium Chloride 0.9% 1000ml Bag) 1,000 ml @ 150 mls/hr Q6H40M IV Last administered on 07/11/16 13:13; Start 07/11/16 at 12:42; Stop 07/11/16 at 19:21; Status DC Ondansetron HCl (Zofran) 4 mg 1X ONCE IV ; Start 07/11/16 at 12:45; Stop at 12:46; Status DC Ondansetron HCl (Zofran) 4 mg PRN Q8HRS PRN IV NAUSEA/VOMITING Last administered on 07/11/16 19:13; Start 07/11/16 at 14:30; Stop 07/12/16 at 14:29 ; Status DC Fentanyl Citrate (Fentanyl 2ml Vial) 50 mcg PRN Q2HR PRN IV PAIN; Start at 14:30; Stop 07/12/16 at 14:29; Status DC Acetaminophen (Tylenol) 650 mg PRN Q4HRS PRN PO FEVER; Start 07/11/16 at 14:30 ; Stop 07/12/16 at 14:29; Status DC Iohexol (Omnipaque 300 Mg/ml) 75 ml 1X ONCE IV Last administered on 07/11/16 17:39; Start 07/11/16 at 17:30; Stop 07/11/16 at 17:31; Status DC Morphine Sulfate (Morphine Oral Solution) 5 mg PRN Q3HRS PRN PO PAIN; Start at 20:45 Morphine Sulfate (Morphine Oral Solution) 10 mg PRN Q3HRS PRN PO PAIN; Start at 20:45 Enoxaparin Sodium (Lovenox 40mg Syringe) 40 mg Q24H SQ Last administered on 22:06; Start 07/11/16 at 22:00 Lansoprazole (Prevacid) 30 mg BID FT Last administered on 07/12/16 08:53; Start 07/12/16 at 09:00; Stop 07/12/16 at 09:02; Status DC Clonidine HCl (Catapres Tts-1) 1 patch WEEKLY TD ; Start 07/18/16 at 09:00 Multi-Ingredient Mouthwash/Gargle (Magic Mouthwash) 10 ml PRN Q4HRS PRN PO pain w/ swallowing; Start 07/11/16 at 22:00 Clonidine HCl (Catapres Tts-1) 1 patch ONCE TD ; Start 07/11/16 at 22:15; Stop 07/11/16 at 23:29; Status DC Clonidine HCl (Catapres Tts-1) 1 patch ONCE ONCE TD Last administered on 23:15; Start 07/11/16 at 23:29; Stop 07/11/16 at 23:30; Status DC Pantoprazole Sodium (Protonix Vial) 40 mg DAILYAC IVP Last administered on 2/1/ 17at 06:24; Start 07/12/16 at 10:00 Morphine Sulfate 2 mg PRN Q2HR PRN IV PAIN; Start 07/12/16 at 11:15 Morphine Sulfate 4 mg PRN Q2HR PRN IV PAIN; Start 07/12/16 at 11:15 Ondansetron HCl (Zofran) 4 mg PRN Q6HRS PRN IV NAUSEA/VOMITING; Start 07/12/16 at 11:15 Hydralazine HCl (Apresoline) 10 mg PRN Q4HRS PRN IVP ELEVATED BP, SEE COMMENTS ; Start 07/12/16 at 11:15 Heparin Sodium (Porcine) (Hep Lock Adult) 500 unit STK-MED ONCE IV ; Start 07/12 at 15:23; Stop 07/12/16 at 15:24; Status DC Lidocaine/ Epinephrine 20 ml 20 ml STK-MED ONCE .ROUTE ; Start 07/12/16 at 15:24 ; Stop 07/12/16 at 15:25; Status DC Heparin Sodium/ Sodium Chloride 0 ml @ As Directed STK-MED ONCE .ROUTE ; Start 07/12/16 at 15:24; Stop 07/12/16 at 15:25; Status DC Vancomycin HCl 0 ml @ As Directed STK-MED ONCE .ROUTE ; Start 07/12/16 at 15:24 ; Stop 07/12/16 at 15:25; Status DC Potassium Chloride/Dextrose (KCl 20 Meq In D5W) 1,000 ml @ 75 mls/hr [id number] IV Last administered on 07/13/16t 10:57; Start 07/13/16 at 08:30 Lidocaine/ Epinephrine (Xylocaine 1%-Epi 1:100,000) 20 ml STK-MED ONCE .ROUTE ; Start 07/13/16 at 08:24; Stop 07/13/16 at 08:25; Status DC Heparin Sodium (Porcine) 500 unit 500 unit STK-MED ONCE IV ; Start 07/13/16 at 08 :24; Stop 07/13/16 at 08:25; Status DC Heparin Sodium/ Sodium Chloride 500 ml @ As Directed STK-MED ONCE .ROUTE ; Start 07/13/16 at 08:24; Stop 07/13/16 at 08:25; Status DC Vancomycin HCl 250 ml @ As Directed STK-MED ONCE .ROUTE ; Start 07/13/16 at 08: 24; Stop 07/13/16 at 08:25; Status DC Midazolam HCl (Versed) 5 mg STK-MED ONCE .ROUTE ; Start 07/13/16 at 09:20; Stop 07/13/16 at 09:21; Status DC Fentanyl Citrate 250 mcg 250 mcg STK-MED ONCE .ROUTE ; Start 07/13/16 at 09:20; Stop 07/13/16 at 09:21; Status DC Cefazolin Sodium (Ancef 1gm Ivpb For Omni) 50 ml @ As Directed STK-MED ONCE IV ; Start 07/13/16 at 09:20; Stop 07/13/16 at 09:21; Status DC Heparin Sodium/ Sodium Chloride 1,000 unit 1X ONCE IART Last administered on 10:15; Start 07/13/16 at 09:45; Stop 07/13/16 at 09:46; Status DC Midazolam HCl (Versed) 3 mg 1X ONCE IV Last administered on 07/13/16 10:14; Start 07/13/16 at 09:45; Stop 07/13/16 at 09:46; Status DC Fentanyl Citrate 150 mcg 150 mcg 1X ONCE IV Last administered on 07/13/16 10: 14; Start 07/13/16 at 09:45; Stop 07/13/16 at 09:46; Status DC Cefazolin Sodium 50 ml @ 100 mls/hr 1X ONCE IV Last administered on 07/13/16 10:15; Start 07/13/16 at 09:45; Stop 07/13/16 at 10:14; Status DC Vancomycin HCl 250 ml @ 250 mls/hr 1X ONCE IRR Last administered on 07/13/16 10:15; Start 07/13/16 at 09:45; Stop 07/13/16 at 10:44; Status DC Lidocaine/ Epinephrine (Xylocaine 1%-Epi 1:100,000) 20 ml 1X ONCE IJ Last administered on 07/13/16 10:15; Start 07/13/16 at 09:45; Stop 07/13/16 at 09:46; Status DC Heparin Sodium (Porcine) (Hep Lock Adult) 500 unit 1X ONCE IV Last administered on 07/13/16 10:17; Start 07/13/16 at 09:45; Stop 07/13/16 at 09:46; Status DC Active Scripts Active Reported Crestor (Rosuvastatin Calcium) 40 Mg Tablet 1 Tab PO DAILY Fenofibrate (Fenofibrate,Micronized) 130 Mg Capsule 160 Mg PO DAILY Ramipril 10 Mg Capsule 1 Cap PO DAILY Prevacid (Lansoprazole) 15 Mg Tab.rap. 1 Tab PO DAILY Multi Vitamin Daily (Multivitamin) 1 Each Tablet 1 Each PO Mag-Oxide (Magnesium Oxide) 400 Mg Tablet 1 Tab PO BID Carvedilol 12.5 Mg Tablet 1 Tab PO BID Aspir 81 (Aspirin) 81 Mg Tablet. 1 Tab PO DAILY Vitals/I & O Vital Sign - Last 24 Hours 07/12/16 07/12/16 07/12/16 07/12/16 15:00 19:49 20:15 23:26 Temp 97.7 97.7 97.3 97.7 97.7 97.3 Pulse 69 77 88 Resp 16 18 18 B/P 128/75 131/80 134/91 Pulse Ox 93 92 90 O2 Delivery Room Air Room Air Room Air Room Air 07/13/16 07/13/16 07/13/16 07/13/16 03:53 07:00 08:00 10:14 Temp 97.3 97.7 97.3 97.7 Pulse 76 74 Resp 18 18 15 B/P 128/79 113/70 Pulse Ox 92 97 96 O2 Delivery Room Air Room Air Room Air Room Air 07/13/16 10:18 Pulse 89 Resp 17 Pulse Ox 95 O2 Delivery Room Air ALICIA JACQUES MD Jul 13, 2016 11:41
[2016-07-13] MEDS ORDERED: TPN PER PHARMACY MC PRN (11:45)
--- NOTE | 2016-07-13 12:11 | PDOC ---
Provider Note Provider Note He just had central line placement. Plan to simulate to esophageal primary tomorrow and begin 10 day course of palliative radiation on Monday. Discussed in detail with imaging review with patient and family. GLADYS BARDALES MD Jul 13, 2016 12:11
[2016-07-13] MEDS ORDERED: TOTAL PARENTERAL NUTRITION IV SCH ×10 (22:00)
[2016-07-13] MEDS ORDERED: AMINO ACIDS IV SCH ×10 (22:00)
[2016-07-13] MEDS ORDERED: [UNRECOGNIZED DRUG - OTHER] IV SCH ×10 (22:00)
[2016-07-13] MEDS ORDERED: DEXTROSE 70% IV SCH ×10 (22:00)
[2016-07-13] MEDS ORDERED: TOTAL PARENTERAL NUTRITION 0 ML, AMINO ACIDS 10 % 60 GM, DEXTROSE 70 % IN WATER 195 GM,... IV SCH ×10 (22:00)
[2016-07-13] MEDS: ENOXAPARIN 40 MG/0.4 ML DISP.SYRIN. SQ SCH (22:32)
[2016-07-14 03:17] VITALS: BP 125/69
[2016-07-14 04:30] LABS: CALCIUM 9.3 mg/dL (8.5-10.1); CREATININE 0.9 mg/dL (0.7-1.3); GFR 83.4; MAGNESIUM 1.7 mg/dL (1.8-2.4); PHOSPHORUS 3.1 mg/dL (2.6-4.7); POTASSIUM 3.2 mmol/L (3.5-5.1)
[2016-07-14] MEDS: PANTOPRAZOLE IV PUSH 40 MG VIAL. IVP SCH (06:26)
[2016-07-14 07:00] VITALS: BP 110/69
--- NOTE | 2016-07-14 07:50 | RAD ---
Ultrasound and fluoroscopy guided right IJ power port insertion Indication: 71-year-old male with esophageal cancer. Image guided power port insertion has been requested for chemotherapy +/- TPN. Fluoroscopy time: 0.5 minutes Kerma-area product: 2 Gycm2 Moderate sedation: 44 minutes moderate sedation was provided utilizing a total of 2.5 mg Versed and 125 mcg fentanyl, IV. The patient was appropriately monitored by a qualified independent observer throughout the course of moderate sedation. Antibiotic: A single dose of Ancef was administered within 1 hour of the procedure start time. Consent: The procedure was explained in its entirety to the patient and/or the patient's designated printing sales representative by a member of the treatment team. This included a discussion of risks and benefits and commonly accepted alternatives to the procedure, as well as expected consequences of no treatment at all. Discussion of risks included, but was not limited to, those that are most frequent and those that are rare, but possibly severe or life-threatening, as well as the possibility of unforeseen complications. Sterility: All elements of maximal sterile barrier technique, including the use of a cap, mask, sterile gown, sterile gloves, large sterile sheet, appropriate hand hygiene, and 2% chlorhexidine for cutaneous antisepsis (or acceptable alternative antiseptic per current guidelines) were utilized. Procedure: Informed consent was obtained from the patient. He was placed supine on the angiography table. Preliminary ultrasound examination of right neck revealed wide patency of right internal jugular vein, which was documented with a single hard copy ultrasound image. Right neck and upper chest were then prepped and draped in the usual sterile fashion, utilizing all elements of maximal sterile barrier technique, as described above. Moderate sedation was provided with IV Versed and fentanyl. 1 g Ancef was given IV, prophylactically. Using aseptic technique and local anesthesia, a small skin incision was made lateral to right internal jugular vein, just above clavicle. Using aseptic technique, local anesthesia, direct ultrasound guidance, and the micropuncture system, successful percutaneous entry was achieved into right internal jugular vein. The right IJ venostomy tract was then dilated and the 8 Malian catheter from a Curetis power port system was easily advanced centrally through an 8.5 Malian peel-away sheath, and was positioned with this tip at the level of upper right atrium utilizing fluoroscopic guidance. A skin site suitable for placement of the power port body was then selected and marked along upper anterior aspect of right chest, overlying anterior aspect of right second rib. Using aseptic technique and local anesthesia, a horizontally oriented skin incision was made in this location. A subcutaneous chest wall pocket was then created and was packed with vancomycin soaked gauze. A subcutaneous tunnel was then fashioned between the chest wall pocket and the initial supraclavicular incision. The 8 Malian power port catheter was then pulled through the subcutaneous tunnel from superior to inferior, utilizing the tunneling device provided. The catheter was then trimmed to an appropriate length and was connected to the power port body, which had been previously flushed with, and soaked in, vancomycin solution. The vancomycin soaked gauze was then removed from the chest wall pocket, which was then copiously irrigated with vancomycin solution. The power port body was then easily introduced into the chest wall pocket and was secured in place utilizing two 2-0 Vicryl sutures. The power port was then accessed utilizing a Marie needle, was documented to flush and aspirate normally, and was packed with heparinized saline. The chest incision was then closed with 2-0 Vicryl, 4-0 Vicryl, Steri-Strips, and sterile dressing. The small supraclavicular incision was closed with 4-0 Vicryl, Steri-Strips, and sterile dressing. Patient tolerated the procedure well without apparent complication. Satisfactory position of the power port was confirmed with a single fluoroscopic spot image. Impression: Successful, uneventful ultrasound and fluoroscopy guided placement of right IJ 8 Malian tunneled power port, as described.
[2016-07-14] MEDS ORDERED: POTASSIUM CHLORIDE 20MEQ 50 ML IV ONE (08:30)
[2016-07-14] MEDS ORDERED: MAGNESIUM SULFATE 2GM 50 ML IV ONE (08:30)
--- NOTE | 2016-07-14 08:52 | PDOC ---
Provider Note Provider Note DATE OF f/u: 07/14/2016 c/c: f/u of Esophageal cancer. HISTORY OF PRESENT ILLNESS: The patient is a 71-year-old gentleman who has a history of congestive heart failure and a defibrillator pacemaker placement. He was evaluated by his animal assisted therapist in 05/2016 and he was noted to have hypokalemia and was recommended potassium supplementation. However, he started noticing dizziness, lightheadedness, nausea, vomiting with potassium intake. He subsequently started having dysphagia and he noticed black stools on 06/21/2016. He noticed that he was unable to keep any solid food down and subsequently even thick liquids were difficult and he was regurgitating or throwing it up. He does feel hungry but has lost 16 pounds within 05/2016 to 06/2016 due to dysphagia. He was evaluated by Dr. Johny Ellis and he underwent an upper endoscopy on 07/08/2016. This revealed a large fungating ulcerating mass with bleeding in the lower third of the esophagus. The mass was completely obstructing and was circumferential. A dilator was passed through the scope and dilatation was performed. Biopsies were obtained. I discussed with the pathologist, Dr. Mcadams that this is malignant and final results will be available in a day or two. In view of poor oral intake and dysphagia, the patient was admitted for further evaluation. PAST MEDICAL HISTORY: Congestive heart failure, COPD, hypertension, pacemaker defibrillator placement, multiple bypass surgeries, valve replacement, cataracts. REVIEW OF SYSTEMS: had dysphagia PHYSICAL EXAMINATION: GENERAL APPEARANCE: The patient is a 71-year-old gentleman who is in no acute cardiorespiratory distress. CHEST: Bilaterally symmetrical. HEART: S1, S2 normal. ABDOMEN: Soft, nontender. CENTRAL NERVOUS SYSTEM: No focal neurological deficits. LYMPHATICS: No lymphadenopathy. IMPRESSION AND PLAN: 1. Stage 4, Esophageal carcinoma involving the distal esophagus diagnosed by EGD and biopsy on 07/08/2016, final results regarding the histology is still pending. CT 07/11/16 reveals liver and lung mets. Bone scan 07/12/16 no mets. In view of distant metastatic disease, I would recommend palliative radiation therapy followed by palliative chemotherapy (after radiation) with FOLFOX. I will ask pathology to test for Her-2-melissa on the esophageal bx. I appreciate Radiation Oncology eval. Palliative radiation to start 07/19/16. He understands the prognosis and agrees with the plan to pursue with radiation and then chemo. 2. Dysphagia. He has lost 16 pounds in 1-2 months, however, his albumin is still normal at 3.8. I discussed with Dr. Ellis who recommended to start chemoradiation and then after about a week or two he would put in a PEG tube if needed. The patient's albumin is still normal. In the interim if he is unable to keep any liquids down, then he may need TPN support. I agree with Dr. Dr. Martinez. s/p port 07/13/16 and TPN started 07/13/16. 3. Liver mets 4. Lung mets JUANCHO BONILLA MD Jul 14, 2016 08:52
[2016-07-14] MEDS ORDERED: CLON1PAT TD (09:32)
[2016-07-14 11:00] VITALS: BP 117/70
--- NOTE | 2016-07-14 11:50 | PDOC3 ---
Discharge Summary [facility] Date of Admission: Jul 11, 2016 Discharge Date: Jul 14, 2016 Admitting Diagnosis 1. 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 h/o CAD status post CABG 3. , mitral valve repair 4. AICD/PPM placement in 2014, 5.hypertension 6. hyperlipidemia. 7. HYPOmagnesemia 8. dysphagia with esophageal Ca 9. hypernatremia 10 . hypokalemia 11. hypomagnesemia Problems: Final Diagnosis Problems Medical Problems: (1) Dysphagia Status: Acute (2) Esophageal cancer Status: Acute CONSULTS RT ONCO Brief Hospital Course Mr. Pate is a 71 old M, comes for dysphagia,. He was diagnosed with esophageal Ca last week, has had dysphagia for 3 weeks, only able to take half spoon of liquid and would have N/V. ct showed liver and lung mets. Bone scan neg. got right IJ port FOR TPN 07/13, RT stimulation today and will start RT next Monday. no chemo till 2 weeks later, and will fu with dr. Ellis for PEG IN 2 week.s all po meds held, start with clonidine patch dc home with TPN dc time 40min General: Alert, Oriented X3, Cooperative Heart: Regular rate, Normal S1, Normal S2. right upper chest power port Lungs: Clear Abdomen: Normal bowel sounds, Soft, Other (mild upper abd tenderness) Extremities: No clubbing, No cyanosis Skin: No rashes Problems: Disposition HH CONDITION AT DISCHARGE: Improved Diet tpn Scheduled Aspirin (Aspir 81) 1 TAB PO DAILY (Reported) Carvedilol (Carvedilol) 1 TAB PO BID (Reported) Clonidine (Clonidine Tts-1) 1 PATCH TD WEEKLY Fenofibrate,Micronized (Fenofibrate) 160 MG PO DAILY (Reported) Lansoprazole (Prevacid) 1 TAB PO DAILY (Reported) Magnesium Oxide (Mag-Oxide) 1 TAB PO BID (Reported) Ramipril (Ramipril) 1 CAP PO DAILY (Reported) Rosuvastatin Calcium (Crestor) 1 TAB PO DAILY (Reported) Miscellaneous Medications Multivitamin (Multi Vitamin Daily) 1 EACH PO (Reported) Follow Up onco, gi in 2 weeks RT next Monday ALICIA JACQUES MD Jul 14, 2016 11:50
[2016-07-14 15:00] VITALS: BP 123/76
[2016-07-14] MEDS ORDERED: TOTAL PARENTERAL NUTRITION IV SCH ×11 (22:00)
[2016-07-14] MEDS ORDERED: AMINO ACIDS IV SCH ×11 (22:00)
[2016-07-14] MEDS ORDERED: [UNRECOGNIZED DRUG - OTHER] IV SCH ×11 (22:00)
[2016-07-14] MEDS ORDERED: DEXTROSE 70% IV SCH ×11 (22:00)
[2016-07-18] MEDS ORDERED: CLONIDINE TTS-1 PATCH TD SCH (09:00)
== END 2016-07-14 15:38 | disposition home or self-care (01) | DRG 375 ==
LOC: ER 11:25 → 4 NORTH 13:15
PROVIDERS: ADMIT Internal Medicine Hematology & Oncology; ATTEND Internal Medicine Hematology & Oncology
PROC: 02H633Z Insertion of Infusion Device into Right Atrium, Percutaneous Approach (ICD-10-PCS; principal; 2016-07-13)
PROC: B2141ZZ Fluoroscopy of Right Heart using Low Osmolar Contrast (ICD-10-PCS; 2016-07-13)
PROC: B244ZZZ Ultrasonography of Right Heart (ICD-10-PCS; 2016-07-13)
DX: C15.5 Malignant neoplasm of lower third of esophagus (principal); C78.7 Secondary malignant neoplasm of liver and intrahepatic bile duct; C78.00 Secondary malignant neoplasm of unspecified lung; E87.0 Hyperosmolality and hypernatremia; J44.9 Chronic obstructive pulmonary disease, unspecified; J45.909 Unspecified asthma, uncomplicated; I25.10 Atherosclerotic heart disease of native coronary artery without angina pectoris; E78.5 Hyperlipidemia, unspecified; E87.6 Hypokalemia; I50.9 Heart failure, unspecified; I11.0 Hypertensive heart disease with heart failure; Z95.2 Presence of prosthetic heart valve; Z95.1 Presence of aortocoronary bypass graft; Z95.810 Presence of automatic (implantable) cardiac defibrillator; Z87.891 Personal history of nicotine dependence; Z80.9 Family history of malignant neoplasm, unspecified
CPT/HCPCS: 36415; 36561; 71260; 74177; 76937; 77001; 77290; 77334; 78306; 80048; 80076; 82947; 83690; 83735; 84100; 85027; 85610; 96374; A9503; C1751; C1892; C9113; J0610; J0690; J1650; J2250; J2405; J3010; J3370; J3475; J3480; J3490; J7030; J7042; J7060; Q9967; 99285-25